=== PATIENT | male | born 1995 | race Hispanic/Latino ===

== ENCOUNTER 2017-04-22 05:41 | Emergency (ER) | payer BC ==
[2017-04-22 05:55] VITALS: BMI 25.0
[2017-04-22 06:30] VITALS: BP 132/81; PULSE 84; RESP 17; TEMP 98.1; O2SAT 100
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
== END 2017-04-22 06:25 | disposition home or self-care (01) ==
LOC: H.ER 05:41
DX: S00.01XA Abrasion of scalp, initial encounter (principal); X99.0XXA Assault by sharp glass, initial encounter; Y92.89 Other specified places as the place of occurrence of the external cause